=== PATIENT | female | born 1980 | race Caucasian/White ===

== ENCOUNTER 2021-01-10 09:54 | Emergency (ER) | payer MEDICAID ==
[~2021-01-10] VITALS: Ht 170.2 cm; Wt 75.0 kg
[2021-01-10 10:09] VITALS: BP 122/71
[2021-01-10] MEDS ORDERED: FLUC150T22 PO (10:40)
== END 2021-01-10 10:53 | disposition home or self-care (01) ==
LOC: ER 09:55
DX: B37.3 Candidiasis of vulva and vagina (principal); Z79.2 Long term (current) use of antibiotics
CPT/HCPCS: 99283